=== PATIENT | female | born 1980 | race Caucasian/White ===

== ENCOUNTER 2016-09-24 08:28 | Emergency (ER) | payer SELFPAY ==
[~2016-09-24] VITALS: Ht 175.3 cm; Wt 105.0 kg
[~2016-09-24 08:28] MED LIST: PRED20 PO
[2016-09-24 08:29] VITALS: BP 135/95; PULSE 84; RESP 20; TEMP 98.1; O2SAT 95
[2016-09-24] MEDS ORDERED: IBUP800T23 PO (09:29)
[2016-09-24] MEDS ORDERED: PRED50 PO (09:29)
[2016-09-24] MEDS ORDERED: CYCL1TAB29 PO (09:29)
--- NOTE | 2016-09-24 09:30 | PD ---
HPI Chief Complaint: Back/ Neck Pain or Injury Time Seen by Provider: 09:10 Travel History International Travel<30 days: No Contact w/Intl Traveler<30days: No Traveled to known affect area: No History of Present Illness HPI Patient is a 36-year-old female who presents emergency department for evaluation of low back pain. Patient states she was attempting to get into a pickup truck that is high off the ground yesterday when she felt her back pull. She was able to continue on with her day, upon awakening this morning her back felt more tight. When she went to work this morning and lifted a rack of glasses she twisted and felt her back tighten up even further. She states the pain radiates down her left leg. She denies any numbness or tingling in her lower extremities. She denies any bladder or bowel incontinence, no saddle paresthesia. Patient does report a history of back pain but is not on any medications for this. She denies any significant past medical history. [facility] Past Medical History Medical History: Denies Significant Hx Hx Anticoagulant Therapy: No Diabetes: No Diminished Hearing: No ?: Not LMP: 09/18/16 Tubal Ligation: Yes Social History Alcohol Use: No Tobacco Use: No Substance Use: No Allergies-Medications (Allergen,Severity, Reaction): Coded Allergies: No Known Allergies (Unverified , 08/04/16) Reported Meds & Prescriptions Reported Meds & Active Scripts Active Prednisone 20 Mg Tab 40 Mg PO DIRECTED Review of Systems Except as stated in HPI: all other systems reviewed are Neg Musculoskeletal: Positive: Myalgias, Cramping, Pain Physical Exam Narrative GENERAL: Well-nourished, well-developed patient. SKIN: Warm and dry. HEAD: Normocephalic. EYES: No scleral icterus. No injection or drainage. NECK: Supple, trachea midline. No JVD or lymphadenopathy. CARDIOVASCULAR: Regular rate and rhythm without murmurs, gallops, or rubs. RESPIRATORY: Breath sounds equal bilaterally. No accessory muscle use. GASTROINTESTINAL: Abdomen soft, non-tender, nondistended. MUSCULOSKELETAL: No cyanosis, or edema. Tenderness to palpation paraspinal musculature in the lumbar region. 5/5 muscle strength in bilateral lower extremities left leg lift elicits pain in the lower back on the left side. Patient is neurovascularly intact. BACK: Nontender without obvious deformity. No CVA tenderness. Data Data Last Documented VS Vital Signs Date Time Temp Pulse Resp B/P Pulse Ox O2 Delivery O2 Flow Rate FiO2 09/24/16 08:29 98.1 84 20 135/95 95 Room Air MDM Medical Decision Making Medical Screen Exam Complete: Yes Emergency Medical Condition: Yes Interpretation(s) Vital Signs Date Time Temp Pulse Resp B/P Pulse Ox O2 Delivery O2 Flow Rate FiO2 09/24/16 08:29 98.1 84 20 135/95 95 Room Air Differential Diagnosis Sprain versus strain versus spasm versus discogenic pain versus sciatica versus other Narrative Course Patient is a 36-year-old female who presented to emergency department for evaluation of low back pain. Pain started just today when she attempted to get into a high pickup truck, it was exacerbated with activity at work today. Physical examination is consistent with a low back muscle strain, spasm. Patient is a neurologically intact. At this time we will trial conservative management, patient has only taken one dose of Aleve since the initiation of her pain. She is encouraged to avoid bed rest, apply warm moist heat to affected area, continue range of motion exercises, avoid exacerbating activities. She is encouraged follow-up with her primary doctor or return to emergency department for any new or worsening symptoms. Patient verbalizes understanding of these instructions. Patient is stable for discharge. Diagnosis Primary Impression: Spasm of lumbar paraspinous muscle Additional Impression: Strain of lumbar paraspinal muscle Qualified Code: S39.012A - Strain of lumbar paraspinal muscle, initial encounter Referrals: Primary Care Physician Patient Instructions: General Instructions, Muscle Spasm (ED), Muscle Strain ( ED) Additional Instructions: Follow-up with primary care provider Take medications as directed Apply warm moist heat to affected area, continue range of motion exercises, avoid bed rest, avoid exacerbating activities Return to the emergency department for any new or worsening symptoms Med/Other Pt SpecificInfo: Prescription(s) given Scripts Prednisone 50 Mg Tab50 Mg PO DAILY #3 TAB Ref 0 Prov:Mary Box 09/24/16 Cyclobenzaprine (Flexeril)10 Mg Tab10 Mg PO TID PRN (MUSCLE SPASM) 10 Days Ref 0 Prov:Mary Box 09/24/16 Ibuprofen 800 Mg Plj309 Mg PO Q6HR PRN (PAIN) 10 Days Ref 0 Prov:Mary Box 09/24/16 Disposition: 01 DISCHARGE HOME Condition: Stable Mary Box Sep 24, 2016 09:30
== END 2016-09-24 09:38 | disposition home or self-care (01) ==
LOC: NEPB 08:28
DX: M62.830 Muscle spasm of back (principal); S39.012A Strain of muscle, fascia and tendon of lower back, initial encounter; X50.0XXA Overexertion from strenuous movement or load, initial encounter; X50.9XXA Other and unspecified overexertion or strenuous movements or postures, initial encounter; Y92.812 Truck as the place of occurrence of the external cause
CPT/HCPCS: 99283